=== PATIENT | male | born 2000 | race Two or more races ===

== ENCOUNTER 2024-12-16 00:32 | Emergency (ER) | payer OTHER ==
[~2024-12-16] VITALS: Ht 177.8 cm; Wt 90.7 kg
[2024-12-16 00:51] VITALS: BP 111/68; TEMP 98.2; O2SAT 96
== END 2024-12-16 00:51 ==
LOC: ER 00:40
DX: F10.129 Alcohol abuse with intoxication, unspecified (principal); V43.52XA Car driver injured in collision with other type car in traffic accident, initial encounter; Y93.89 Activity, other specified; Y92.410 Unspecified street and highway as the place of occurrence of the external cause; Y99.9 Unspecified external cause status; Y90.9 Presence of alcohol in blood, level not specified